=== PATIENT | female | born 1985 | race Asian ===

== ENCOUNTER 2021-01-25 16:33 | Outpatient (CLI) ==
[~2021-01-25] VITALS: Ht 170.2 cm; Wt 62.1 kg
[2021-01-25 17:07] VITALS: BP 110/65
[2021-01-25] MEDS ORDERED: MAGN400T2 PO (17:58)
[2021-01-25] MEDS ORDERED: B-2100TA PO (17:58)
[2021-01-25] MEDS ORDERED: PYRI50TA8 PO (17:58)
[2021-01-25] MEDS ORDERED: ZOLO50TA PO (17:58)
[2021-01-25] MEDS ORDERED: FAMO20TA PO (17:58)
[2021-01-25] MEDS ORDERED: UNIS25TA3 PO (17:58)
[2021-01-25] MEDS ORDERED: PRENTAB9 PO (17:58)
[2021-01-25] MEDS ORDERED: HOME MED LIST COMPLETE! XX SCH (18:00)
[2021-01-25] MEDS ORDERED: FLUCONAZOLE 50MG TABLET PO ONE (18:30)
--- NOTE | 2021-01-25 19:24 | REP ---
INDICATION: 04/19 VAG BLDNG - ANATOMY SCAN, CERVICAL LENGTH TRANSVAGINA COMPARISON: None. TECHNIQUE: Transabdominal and transvaginal obstetrical ultrasound with color Doppler evaluation. FINDINGS: Examination demonstrates a single live intrauterine in breech presentation. motion is identified by technologist. Placenta is noted posterior and grade 0 without evidence for placenta previa or abruption. Amniotic fluid volume is normal. Cervix measures 2.9 cm in length with small amount of fluid versus mucous plug suggested in the mid cervix. 7.8 cm simple maternal right ovarian cyst noted. Gestational age by current measurements 22 weeks 3 days with JOSE 05/28/2021. FHR equals 147 beats per minute. BPD: 5.2 cm at 21 weeks 5 days HC: 19.5 cm at 21 weeks 5 days AC: 18.9 cm at 23 weeks 5 days FL: 3.8 cm at 22 weeks 2 days HL: 3.7 cm at 23 weeks 0 days HC/AC: 1.03 Estimated weight 539 grams (52ndpercentile). Anatomical assessment demonstrates normal structures including cranium, choroid plexus, cavum, cerebellum/posterior fossa, facial features, diaphragm, stomach, three-vessel cord, bladder, spine, and upper extremities. Limited evaluation of the facial profile, lungs, heart/ventricular outflow tracts, abdominal wall and kidneys as well as feet due to positioning. IMPRESSION: 1. Single live intrauterine in breech presentation demonstrating appropriate estimated weight. 2. Shortened cervix at 2.9 cm with fundal pressure and small amount of trapped fluid versus mucous plug in the mid section. Internal os is closed and there is no evidence for funneling. 3. Anatomical limitations as noted above warrant follow-up. 4. 7.8 cm simple maternal right ovarian cyst. <Electronically signed by Jose David Guerra > 01/25/211919
--- NOTE | 2021-01-25 23:26 | IPNPDOC ---
Text Note Date of Service The patient was seen on 01/25/21. NOTE Vital Signs Label Value Date Time Blood Pressure Assessment 110/65 (80) 01/25/21 1707 Source Automatic Cuff (NIBP) Respiratory Rate 16 bpm 01/25/21 1707 Pulse 86 01/25/21 1707 Patient Temperature 98.1 degrees F 01/25/21 1707 01/25/21 PATIENT SEEN IN TRIAGE CAME FROM OFFICE DUE TO CONTRACTIONS AT 21.1 WEEKS ALSO HAD YEAST INFECTION PREVIOUSLY VAGINAL BLEEDING NOW NO BLEEDING. PATIENT LMP 07/28/20 EDC BY EARLY US 09/22/20 AT 7.4 WEEKS EDC 06/06/21. RISK FACTORS AMA ESL CZECH SITUATIONAL DEPRESSION ANEMIA PHYSICAL EXAMINATION NO ACUTE DISTRESS NO VAGINAL BLEEDING OR DISCHARGE MONITOR GOOD FH OCCASIONAL TIGHTENINGS ON MONITOR PLAN OF CARE DIFLUCAN 150 MG ORDERED US FOR ANATOMY AND CERVICAL LENGTH PRECAUTIONS GIVEN CALL OFFICE THURSDAY AM FOR WALK IN APPOINTMENT [phone] PLAN FOR WEEKLY 17 ([place]) PROGESTERONE UNTIL 36 WEEKS WEEKLY CERVICAL LENGTH UNTIL 28 WEEKS POSSIBLE STEROIDS AT 28 WEEKS PELVIC REST CONSULT ROSA ISELA ZOLOFT NOT WORKING SITUATIONAL DEPRESSION ALL THIS DONE WITH TRANSONIC ENGINEER 60 MINUTES DISCUSSION DISCHARGED UNDELIVERED [facility] NAME: SCARLET DIAZ DATE OF : 1985 AGE: 35 SEX: F REPORT #: [id number] ROOM: [facility] TECHNOLOGIST: [facility] DOCTOR: Leobardo Hodge MD Ordered for Date&Time: 01/25/21 1746 cc: [~ rep ct ivnm] Service Date&Time: 01/25/21 1851 This report is in Signed status. If this report is in a DRAFT status it has not yet been reviewed by the radiologist for accuracy. Thank you for having your radiology procedures performed at [facility] RADIOLOGY REPORT Date&Time printed: [~ rep prt dt last] [~ rep prt tm last] Page 2 of [address] [place] [address] RADIOLOGY REPORT This report is in Signed status. If this report is in a DRAFT status it has not yet been reviewed by the radiologist for accuracy. Thank you for having your radiology procedures performed at [facility] RADIOLOGY REPORT Date&Time printed: [~ rep prt dt last] [~ rep prt tm last] Page 1 of 2 NAME: SCARLET DIAZ DATE OF : 1985 AGE: 35 SEX: F REPORT #: [id number] ROOM: [facility] TECHNOLOGIST: [facility] DOCTOR: Leobardo Hodge MD Ordered for Date&Time: 01/25/21 1746 cc: [~ rep ct ivnm] Service Date&Time: 01/25/21 1851 EXAMINATION REQUESTED: US OBS SINGEL GEST REASON FOR PATIENT VISIT: MONITORING REASON FOR EXAM/COMMENT: 04/19 VAG BLDNG - ANATOMY SCAN, CERVICAL LENGTH TRANSVAGINA INDICATION: 04/19 VAG BLDNG - ANATOMY SCAN, CERVICAL LENGTH TRANSVAGINA COMPARISON: None. TECHNIQUE: Transabdominal and transvaginal obstetrical ultrasound with color Doppler evaluation. FINDINGS: Examination demonstrates a single live intrauterine in breech presentation. motion is identified by technologist. Placenta is noted posterior and grade 0 without evidence for placenta previa or abruption. Amniotic fluid volume is normal. Cervix measures 2.9 cm in length with small amount of fluid versus mucous plug suggested in the mid cervix. 7.8 cm simple maternal right ovarian cyst noted. Gestational age by current measurements 22 weeks 3 days with JOSE 05/28/2021. FHR equals 147 beats per minute. BPD: 5.2 cm at 21 weeks 5 days HC: 19.5 cm at 21 weeks 5 days AC: 18.9 cm at 23 weeks 5 days FL: 3.8 cm at 22 weeks 2 days HL: 3.7 cm at 23 weeks 0 days HC/AC: 1.03 Estimated weight 539 grams (52ndpercentile). Anatomical assessment demonstrates normal structures including cranium, choroid plexus, cavum, cerebellum/posterior fossa, facial features, diaphragm, stomach, three-vessel cord, bladder, spine, and upper extremities. Limited evaluation of the facial profile, lungs, heart/ventricular outflow tracts, abdominal wall and kidneys as well as feet due to positioning. IMPRESSION: 1. Single live intrauterine in breech presentation demonstrating appropriate estimated weight. 2. Shortened cervix at 2.9 cm with fundal pressure and small amount of trapped fluid versus mucous plug in the mid section. Internal os is closed and there is no evidence for funneling. 3. Anatomical limitations as noted above warrant follow-up. 4. 7.8 cm simple maternal right ovarian cyst. <Electronically signed by Jose David Guerra > 01/25/211919 DD: Jose David Guerra MD 01/25/211914 DT: BELA 01/25/211919 DS: FRANCIA 01/25/21191401/25/211914 [~ rep ct labl] VS,Fishbone, I+O VS, Fishbone, I+O Vital Signs Date Time Temp Pulse Resp B/P (MAP) Pulse Ox O2 Delivery O2 Flow Rate FiO2 01/25/21 17:07 98.1 86 16 110/65 (80) Leobardo Hodge MD Jan 25, 2021 23:23
== END 2021-01-25 22:35 | disposition home or self-care (01) ==
LOC: M LDO 16:33
PROVIDERS: ATTEND Obstetrics & Gynecology
DX: O60.02 Preterm labor without delivery, second trimester (principal); O32.1XX0 Maternal care for breech presentation, not applicable or unspecified; O99.342 Other mental disorders complicating pregnancy, second trimester; F32.A Depression, unspecified; O23.592 Infection of other part of genital tract in pregnancy, second trimester; B37.3 Candidiasis of vulva and vagina; O99.012 Anemia complicating pregnancy, second trimester; Z3A.21 21 weeks gestation of pregnancy
CPT/HCPCS: 59025; 76811; 76817; G0378; G0463

== ENCOUNTER 2021-04-11 13:30 | Outpatient (CLI) | payer OTHER ==
[~2021-04-11] VITALS: Ht 167.6 cm; Wt 66.8 kg
[~2021-04-11 13:30] MED LIST: B-2100TA PO; FAMO20TA PO; MAGN400T2 PO; PRENTAB9 PO; PYRI50TA8 PO; UNIS25TA3 PO; ZOLO50TA PO
[2021-04-11] MEDS ORDERED: HOME MED LIST COMPLETE! XX SCH (13:55)
[2021-04-11 13:58] VITALS: BP 89/54
--- NOTE | 2021-04-11 14:48 | IPNPDOC ---
Text Note Date of Service The patient was seen on 04/11/21. NOTE Muna Kearns is a 35yo G1 at 32 weeks who I walked over to L&D for an NST. She had been scheduled for an NST in our office however our office was closed and I discovered her waiting outside the closed door. She has a history of labor for which she was placed on progesterone. Most recently she was seen by Dr. Hodge who advised her to have weekly NSTs per patient. Today she does report occasional contractions and abdominal pains, nothing consistent and they are not increasing in frequency or intensity. Her NST was reactive with uterine irritability. She had an MVP of 5cm on bedside ultrasound. Abdomen was soft, nontender. I offered a cervical exam which she declined. (RN present. ) I reviewed these findings with her and discussed discomforts of . She indicated understanding. She reported that her is deployed and she is home alone and does not have friends or family and also has a language barrier as Kiswahili is her first language. I encouraged her to contact her 's unit as they have support services. She does have the number and will give them a call. She also expressed frustration with the lack of continuity in our office. She did prefer Dr. Hodge and I will relay this information to the front desk assistant team. I told her if she has any problem finding resources or assistance to call our office as we will do our best to get her any assist that is availavle. For example, she should not be shoveling snow or performing work with risk of slip and fall in the third trimester of . Reactive NST. Follow up at next OB or sooner if needed. Return/labor precautions given. Davida Bunn DO VS,Saeed, I+O VS, Saeed, I+O Vital Signs Date Time Temp Pulse Resp B/P (MAP) Pulse Ox O2 Delivery O2 Flow Rate FiO2 04/11/21 13:58 99.5 105 18 89/54 (66) DAVIDA BUNN DO Apr 11, 2021 14:47
== END 2021-04-11 14:45 | disposition home or self-care (01) ==
LOC: M LDO 13:30
PROVIDERS: ATTEND Obstetrics & Gynecology
DX: O60.03 Preterm labor without delivery, third trimester (principal); O09.513 Supervision of elderly primigravida, third trimester; Z3A.32 32 weeks gestation of pregnancy
CPT/HCPCS: 59025; 76815; G0378; G0463

== ENCOUNTER → 2021-05-15 | Outpatient (CLI) | payer OTHER | LOC: M RAD 11:55 | PROVIDERS: ATTEND Registered Nurse | DX: O36.8330 Maternal care for abnormalities of the fetal heart rate or rhythm, third trimester, not applicable or unspecified (principal); Z3A.30 30 weeks gestation of pregnancy ==